=== PATIENT | female | born 2000 | race Caucasian/White ===

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

== ENCOUNTER 2018-02-18 21:39 | Emergency (ER) | payer OTHER ==
[2018-02-18 21:42] VITALS: BMI 21.4
--- NOTE | 2018-02-18 22:08 | PDOC ---
History of Present Illness - General Chief Complaint: Cold Symptoms Stated Complaint: COLD SYMPTOMS Time Seen by Provider: 02/18/18 22:02 - History of Present Illness Initial Comments: 17 y/o 6 month gravid F presents for evaluation of cold symptoms 2 days. No associated fever chills or night sweats she has a mild cough. No comorbidities 02/18/18 22:05 Past History - Past Medical History Allergies/Adverse Reactions: Allergies Allergy/AdvReac Type Severity Reaction Status Date / Time No Known Allergies Allergy Verified 02/18/18 21:42 Home Medications: Ambulatory Orders NK [No Known Home Medication] 02/18/18 COPD: No - Immunization History Immunization Up to Date: Yes - Suicide/Smoking/Psychosocial Hx Smoking History: Never smoked Review of Systems - Review of Systems HEENTM: Yes: Nose Congestion Respiratory: Yes: Cough *Physical Exam - Vital Signs Last Vital Signs Temp Pulse Resp BP Pulse Ox 98.4 F 91 H 18 114/74 99 02/18/18 21:40 02/18/18 21:40 02/18/18 21:40 02/18/18 21:40 02/18/18 21:40 - Physical Exam Comments: HEAD: NC/AT EYES: Conjuntiva clear Ears: Canals and TM's normal NOSE: Mildly injected turbinates with clear discharge THROAT: Moist mucous membrances, oral pharanx clear, uvula midline NECK: Supple without adenopathy CARDIAC: S1 S2 LUNGS: CTA Full and Equal breath sounds ABDOMEN: Soft NT ND MS: Full ROM in all joints without edema NEUROLOGIC: No gross sensory or motor deficits, NVID SKIN: Normal color and temperature no lesions or rashes 02/18/18 22:06 Medical Decision Making - Medical Decision Making 02/18/18 22:08 Patient will report to labor and delivery for clearance *DC/Admit/Observation/Transfer Diagnosis at time of Disposition: URI (upper respiratory infection) - Discharge Dispostion Disposition: HOME Condition at time of disposition: Stable Decision to Admit order: No - Referrals Referrals: Max Burgess [Non Staff, Medical] - - Patient Instructions Printed Discharge Instructions: DI for Viral Upper Respiratory Infection -- Adult Additional Instructions: Return to the emergency room should symptoms worsen or go unresolved. Its very important you to keep your temperature normal if you feel you I getting a fever please take Tylenol as directed follow-up with your BUILDING SUPERVISOR in one to 2 days for further evaluation and treatment options and a primary care physician I recommended few in one to 2 days for further evaluation and treatment options. A fever can harm your unborn baby - Post Discharge Activity
[2018-02-18 23:36] VITALS: BP 123/77; PULSE 86; TEMP 98
== END 2018-02-18 23:20 | disposition home or self-care (01) ==
LOC: JER 21:39 → JERFT 21:39 → JER 23:20
DX: O26.892 Other specified pregnancy related conditions, second trimester (principal); J06.9 Acute upper respiratory infection, unspecified; Z3A.26 26 weeks gestation of pregnancy
CPT/HCPCS: 99281-25

== ENCOUNTER 2018-05-30 19:20 | Inpatient (IN) | payer OTHER ==
[2018-05-30] MEDS ORDERED: DEXTROSE 5%-LACTATED RINGERS 500 ML IV ONE ×2 (19:45→20:45)
[2018-05-30] MEDS: DEXTROSE 5%-LACTATED RINGERS 1,000 ML IV SCH (22:00)
[2018-05-30 22:38] VITALS: BMI 27.1
[2018-05-30 22:56] LABS: BASO % 0.5 % (0-2.0); EOS % 1.5 % (0-4.5); HEMATOCRIT 25.6 % (32.4-45.2); HEMOGLOBIN 8.5 GM/dL (10.7-15.3); LYMPH % 23.7 % (8-40); MCH 21.9 pg (25.7-33.7); MCHC 33.4 g/dl (32.0-36.0); MEAN CELL VOLUME 65.6 fl (80-96); MEAN PLT VOLUME 8.4 fl (7.5-11.1); MONO % 9.6 % (3.8-10.2); NEUT % 64.7 % (42.8-82.8); PLATELET COUNT 278 K/MM3 (134-434); RDW 17.1 % (11.6-15.6); WHITE BLOOD COUNT 5.3 K/mm3 (4.0-10.0)
[2018-05-30 23:08] LABS: INR 0.89 (0.83-1.09); PROTHROMBIN TIME (PATIENT) 10.5 SEC (9.7-13.0)
--- NOTE | 2018-05-30 23:10 | HP ---
Past Medical History - Admission Chief Complaint: Labor pain History of Present Illness: 17 yo , @ 39 weeks gestation, EDC 05/30/18, admitted for labor pain. Upon admission she was 4cm dilated. History Source: Patient Limitations to Obtaining History: No Limitations - Past Medical History ...: 1 ...Para: 0 ...Term: 0 ...: 0 ...Spon : 0 ...Induced : 0 ...Multiple Gestation: 0 ...LMP: 08/23/17 ... Weeks Gestation by Dates: 40.0 ...EDC by Dates: 05/30/18 ...EDC by Sono: 06/03/18 - Past Surgical History Past Surgical History: Yes: None Hx Myomectomy: No Hx Transabdominal Cerclage: No - Smoking History Smoking history: Never smoked Have you smoked in the past 12 months: No - Alcohol/Substance Use Hx Alcohol Use: No History of Substance Use: reports: None - Social History History of Recent Travel: No Home Medications - Allergies Allergies/Adverse Reactions: Allergies Allergy/AdvReac Type Severity Reaction Status Date / Time No Known Allergies Allergy Verified 05/30/18 20:11 - Home Medications Home Medications: Ambulatory Orders Multivitamin Tablet 1 tab PO DAILY 02/18/18 Ferrous Sulfate [Feosol] 325 mg PO DAILY 05/30/18 Review of Systems - Review of Systems Constitutional: reports: No Symptoms Eyes: reports: No Symptoms HENT: reports: No Symptoms Neck: reports: No Symptoms Cardiovascular: reports: No Symptoms Respiratory: reports: No Symptoms Gastrointestinal: reports: No Symptoms Genitourinary: reports: Pain Breasts: reports: No Symptoms Reported Musculoskeletal: reports: No Symptoms Integumentary: reports: No Symptoms Neurological: reports: No Symptoms Endocrine: reports: No Symptoms Hematology/Lymphatic: reports: Other Psychiatric: reports: No Symptoms Pain Intensity: 3 Physical Exam - Maternity Vital Signs: Vital Signs Temperature 98.2 F 05/30/18 22:00 Pulse Rate 94 H 05/30/18 22:00 Respiratory Rate 20 05/30/18 22:00 Blood Pressure 138/87 05/30/18 22:00 O2 Sat by Pulse Oximetry (%) Constitutional: Yes: Well Nourished Eyes: Yes: Conjunctiva Clear HENT: Yes: Atraumatic Neck: Yes: Supple Cardiovascular: Yes: Regular Rate and Rhythm Lungs: Clear to auscultation - Abdominal Exam/OB Number of Fetuses: Single Presentation: Vertex - Vaginal Exam/OB Dilatation (cm): 4 Effacement (%): 90 Amniotic Membrane Status: Intact Presentation: Vertex/Position Station: -2 - Physical Exam ...Motor Strength: WNL Psychiatric: Yes: Alert, Oriented - Labs Lab Results: CBC, BMP 05/30/18 22:45 Problem List - Problems (1) Pain during labor Code(s): O99.89 - OTH DISEASES AND CONDITIONS COMPL PREG/CHLDBRTH; R52 - PAIN, UNSPECIFIED Assessment/Plan 39 weeks gestation Active labor Admit to L&D Analgesia as needed Anticipate
[2018-05-30 23:14] LABS: ANION GAP 8 MMOL/L (8-16); BLOOD UREA NITROGEN 14 mg/dL (7-18); CALCIUM 8.6 mg/dL (8.5-10.1); CHLORIDE 110 mmol/L (98-107); CO2 22 mmol/L (21-32); CREATININE 0.4 mg/dL (0.55-1.3); GLUCOSE,RANDOM 79 mg/dL (74-106); POTASSIUM 3.9 mmol/L (3.5-5.1); SODIUM 140 mmol/L (136-145)
[2018-05-30 23:50] LABS: ANISOCYTOSIS 3+; MACROCYTOSIS 2+; PLATELET ESTIMATE ADEQUATE
[2018-05-31] MEDS ORDERED: PROMETHAZINE HCL 25 MG/1 ML VIAL ONE ×2 (01:53→09:47)
[2018-05-31] MEDS ORDERED: BUTORPHANOL TARTRATE 1 MG/ML VIAL ONE ×4 (01:53→09:46)
[2018-05-31] MEDS ORDERED: PROMETHAZINE HCL 25 MG/1 ML VIAL IVPB ONE (02:00)
[2018-05-31] MEDS ORDERED: BUTORPHANOL TARTRATE 1 MG/ML VIAL IVPB ONE (02:00)
[2018-05-31] MEDS ORDERED: ELECTROLYTE-148 SOLN 1,000 ML IV SCH (06:30)
--- NOTE | 2018-05-31 08:53 | PN ---
Progress Note (short form) - Note Progress Note: cx 6 cm 80 vx -1 mi, arom clear , fhr cat 1, regular contraction
[2018-05-31] MEDS ORDERED: PROMETHAZINE HCL 25 MG/1 ML VIAL IVPUSH ONE (10:05)
[2018-05-31] MEDS ORDERED: BUTORPHANOL TARTRATE 1 MG/ML VIAL IVPUSH ONE (10:05)
--- NOTE | 2018-05-31 10:08 | PN ---
Progress Note (short form) - Note Progress Note: cx 7 cm 80 vx -1, mt, fhr cat 1, regular contraction q 2 min wants more pain meds, declined epidural
[2018-05-31] MEDS ORDERED: OXYTOCIN 20 UNITS in 0.9% NS 20 UNIT/1,000 ML INFUS.BAG IV ONE (10:12)
[2018-05-31] MEDS ORDERED: LIDOCAINE HCL 1% PRESERVATIVE FREE - 30ML VIAL ONE (10:12)
[2018-05-31] MEDS ORDERED: BENZOCAINE 20% 57 GM BOTTLE TP PRN (13:23)
[2018-05-31] MEDS ORDERED: WITCH HAZEL 50% (TUCKS) 40 PAD/JAR PAD TP PRN (13:23)
[2018-05-31] MEDS ORDERED: BISACODYL 10 MG SUPP.RECT RC PRN (13:23)
[2018-05-31] MEDS ORDERED: METHYLERGONOVINE MALEATE 0.2 MG/1 ML AMP IM PRN (13:23)
[2018-05-31] MEDS ORDERED: BENZOCAINE 28 GM HEMORRHOIDAL OINTMENT TP PRN (13:23)
[2018-05-31] MEDS: ACETAMINOPHEN 325 MG TABLET (FP) PO PRN ×2 (13:30→20:42)
[2018-05-31] MEDS ORDERED: OXYTOCIN 20 UNITS in 0.9% NS 20 UNIT/1,000 ML INFUS.BAG IV SCH (13:30)
[2018-05-31] MEDS ORDERED: D5W-LR W/ 20 UNITS OXYTOCIN 20 UNIT/1,000 ML INFUS.BAG IV SCH (13:30)
[2018-05-31] MEDS: IBUPROFEN 600 MG TABLET (FP) PO PRN ×2 (13:30→20:43)
[2018-05-31] MEDS: SENNOSIDES/DOCUSATE COMBO (SENNA PLUS) TABLET (UD) PO PRN (20:43)
[2018-05-31] MEDS: FERROUS SO4 325 MG TABLET (FP) PO SCH (21:05)
[2018-05-31] MEDS: DEXTROSE 5%-LACTATED RINGERS 1,000 ML IV SCH (23:49)
[2018-06-01 06:03] LABS: BASO % 0.3 % (0-2.0); EOS % 0.4 % (0-4.5); HEMATOCRIT 19.4 % (32.4-45.2); LYMPH % 16.6 % (8-40); MCH 21.3 pg (25.7-33.7); MCHC 32.6 g/dl (32.0-36.0); MEAN CELL VOLUME 65.3 fl (80-96); MEAN PLT VOLUME 8.3 fl (7.5-11.1); MONO % 7.9 % (3.8-10.2); NEUT % 74.8 % (42.8-82.8); PLATELET COUNT 214 K/MM3 (134-434); RBC 2.97 M/mm3 (3.60-5.2); RDW 17.4 % (11.6-15.6)
[2018-06-01 06:06] LABS: HEMOGLOBIN 6.3 GM/dL (10.7-15.3)
[2018-06-01] MEDS ORDERED: DIPHTH,PERTUSS(ACELL),TET 0.5 ML DISP.SYRIN IM ONE (10:00)
[2018-06-01] MEDS: PRENATAL VITAMINS W/ FOLIC ACID TABLET (FP) PO SCH (10:00)
[2018-06-01] MEDS: FERROUS SO4 325 MG TABLET (FP) PO SCH ×2 (10:00→21:15)
[2018-06-01] MEDS ORDERED: FLU VACCINE QUAD 60 MCG/0.5 ML (MDV 18-19) IM ONE (10:00)
[2018-06-01] MEDS: IBUPROFEN 600 MG TABLET (FP) PO PRN ×2 (14:32→22:49)
[2018-06-01] MEDS: ACETAMINOPHEN 325 MG TABLET (FP) PO PRN ×2 (14:32→22:48)
--- NOTE | 2018-06-01 20:24 | PN ---
Progress Note (short form) - Note Progress Note: ppd 1, anemia, no c/o ,no dizziness ambulating well abdomen soft, uterus firm, non tender lochia mild no calf tenderness anemia asymptomatic, advised iron, vit if symptomatic advise transfusion
[2018-06-01] MEDS: SENNOSIDES/DOCUSATE COMBO (SENNA PLUS) TABLET (UD) PO PRN (21:15)
[2018-06-02] MEDS: ACETAMINOPHEN 325 MG TABLET (FP) PO PRN (07:36)
[2018-06-02] MEDS: IBUPROFEN 600 MG TABLET (FP) PO PRN (07:39)
[2018-06-02 07:56] LABS: BASO % 0.5 % (0-2.0); EOS % 2.5 % (0-4.5); HEMATOCRIT 22.1 % (32.4-45.2); LYMPH % 21.4 % (8-40); MCH 20.8 pg (25.7-33.7); MCHC 31.6 g/dl (32.0-36.0); MEAN CELL VOLUME 65.8 fl (80-96); MEAN PLT VOLUME 8.2 fl (7.5-11.1); MONO % 7.5 % (3.8-10.2); NEUT % 68.1 % (42.8-82.8); PLATELET COUNT 239 K/MM3 (134-434); RBC 3.36 M/mm3 (3.60-5.2); RDW 17.4 % (11.6-15.6); WHITE BLOOD COUNT 8.2 K/mm3 (4.0-10.0)
[2018-06-02] MEDS: PRENATAL VITAMINS W/ FOLIC ACID TABLET (FP) PO SCH (10:35)
[2018-06-02] MEDS: FERROUS SO4 325 MG TABLET (FP) PO SCH (10:35)
--- NOTE | 2018-06-02 11:11 | DS ---
Physical Exam-OIL FIELD OPERATOR Vital Signs: Vital Signs Temperature 98.1 F 06/01/18 21:00 Pulse Rate 80 06/01/18 21:00 Respiratory Rate 18 06/01/18 21:00 Blood Pressure 115/78 06/01/18 21:00 O2 Sat by Pulse Oximetry (%) 100 05/31/18 14:15 Constitutional: Yes: Well Nourished, No Distress, Calm Eyes: Yes: WNL, Conjunctiva Clear, EOM Intact HENT: Yes: WNL, Atraumatic, Normocephalic Neck: Yes: WNL, Supple, Trachea Midline Cardiovascular: Yes: WNL, Regular Rate and Rhythm Respiratory: Yes: WNL, Regular, CTA Bilaterally Gastrointestinal: Yes: WNL ...Rectal Exam: Yes: WNL Renal/: Yes: WNL External Genitalia: Yes: Normal ....Post : Yes: Uterus firm, Uterus non-tender, Slight lochia rubra Breast(s): Yes: WNL Musculoskeletal: Yes: WNL Extremities: Yes: WNL Edema: No Integumentary: Yes: WNL Neurological: Yes: WNL, Alert, Oriented ...Motor Strength: WNL Psychiatric: Yes: WNL, Alert, Oriented Labs: CBC, BMP 06/02/18 06:37 05/30/18 22:45 Delivery - Delivery Vaginal Delivery: Spontaneous (no complication) Type of Anesthesia: Local Episiotomy/Laceration: Left Mediolateral EBL (cc): 400 Delivery, Single - Stages of Labor Date 1st Stage Initiatied: 05/31/18 Time 1st Stage Initiated: 01:00 Date 2nd Stage Initiated: 05/31/18 Time 2nd Stage Initiated: 12:35 Date of Delivery: 05/31/18 Time of Delivery: 13:00 Time Placenta Delivered: 13:05 Placenta: Yes: Spontaneous - Condition of Infant Electrical Automation Engineer/Resident Hall Director Present: No Infant Gender: Male Weight: 6 lb 14 oz Position: Right, OA Total Hours ROM (Hrs/Mins): 4h15m - 1 Minute Total Score: 9 5 Minutes Total Score: 9 - Frakes Feeding Plan Initial Plan: Elected not to breastfeed exclusively throughout hospitalization Discharge Summary Reason For Visit: LABOR ADMIT Current Active Problems Pain during labor (Acute) Procedures: Principal: Condition: Stable - Instructions Disposition: HOME - Home Medications Comprehensive Discharge Medication List: Ambulatory Orders Multivitamin Tablet 1 tab PO DAILY 02/18/18 Ferrous Sulfate [Feosol] 325 mg PO DAILY 05/30/18 Ibuprofen [Motrin -] 600 mg PO QID #28 tablet 06/02/18
[2018-06-02 11:40] VITALS: BP 109/64; PULSE 76; TEMP 97.6
== END 2018-06-02 12:30 | disposition home or self-care (01) | DRG 560 ==
LOC: JDEL 19:20 → JLDR 21:40 → J3W 05-31 15:26
PROVIDERS: ADMIT Obstetrics & Gynecology; ATTEND Obstetrics & Gynecology
PROC: 10E0XZZ Delivery of Products of Conception, External Approach (ICD-10-PCS; principal; 2018-05-31)
PROC: 0W8NXZZ Division of Female Perineum, External Approach (ICD-10-PCS; 2018-05-31)
DX: O99.02 Anemia complicating childbirth (principal); D64.9 Anemia, unspecified; Z3A.39 39 weeks gestation of pregnancy; Z37.0 Single live birth
CPT/HCPCS: 36415; 59409; 80048; 85025; 85610; 85730; 86593; 86850; 86900; 86901; 90686; 90715; G0008

== ENCOUNTER 2019-05-02 07:47 | Emergency (ER) | payer OTHER ==
[2019-05-02 08:00] VITALS: BP 157/89; PULSE 91; TEMP 97; BMI 23.4
--- NOTE | 2019-05-02 08:12 | PDOC ---
History of Present Illness - General Chief Complaint: Vaginal Bleeding Stated Complaint: VAGINAL BLEEDING - History of Present Illness Initial Comments: The pt is a 18F w/ no reported PMH who presents for evaluation of 1 day of vaginal spotting/bleeding. The pt reports giving in 05/2018 and was subsequently on OCPs which she stopped taking in 01/2019. She reports her LMP was 03/01/19. She has been having intercourse with her same partner w/o condom use. She reports a neg test at home. She endorses mild centered suprapubic cramping similar to her previous menstrual cycles. She denies fevers/chills, dysuria, diarrhea, hematuria, blood in her stool, chest pain, trouble breathing, or changes in sensation. 05/02/19 08:32 Past History - Past Medical History Allergies/Adverse Reactions: Allergies Allergy/AdvReac Type Severity Reaction Status Date / Time No Known Allergies Allergy Verified 05/02/19 07:58 Home Medications: Ambulatory Orders Multivitamin Tablet 1 tab PO DAILY 02/18/18 Ferrous Sulfate [Feosol] 325 mg PO DAILY 05/30/18 Ibuprofen [Motrin -] 600 mg PO QID #28 tablet 06/02/18 Asthma: No Cancer: No Cardiac Disorders: No COPD: No Diabetes: No HTN: No Seizures: No Thyroid Disease: No - Immunization History Immunization Up to Date: Yes - Psycho Social/Smoking Cessation Hx Smoking History: Never smoked Have you smoked in the past 12 months: No Hx Alcohol Use: No Drug/Substance Use Hx: No Hx Substance Use Treatment: No Review of Systems - Review of Systems Able to Perform ROS?: Yes Comments:: GENERAL/CONSTITUTIONAL: No fever or chills. No weakness HEAD, EYES, EARS, NOSE AND THROAT: No change in vision. No change in hearing. No sore throat CARDIOVASCULAR: No chest pain or shortness of breath RESPIRATORY: Denies cough, hemoptysis GASTROINTESTINAL: No nausea, vomiting, diarrhea or constipation GENITOURINARY: No dysuria, frequency, or change in urination MUSCULOSKELETAL: No joint or muscle swelling or pain. No neck or back pain SKIN: No rash NEUROLOGIC: No headache, vertigo, loss of consciousness, or change in strength/ sensation ENDOCRINE: No increased thirst. No abnormal weight change HEMATOLOGIC/LYMPHATIC: No anemia, easy bleeding, or history of blood clots ALLERGIC/IMMUNOLOGIC: No hives or skin allergy 05/02/19 08:12 Is the patient limited Uzbek proficient: No *Physical Exam - Vital Signs Last Vital Signs Temp Pulse Resp BP Pulse Ox 97 F L 91 H 18 157/89 99 05/02/19 07:56 05/02/19 07:56 05/02/19 07:56 05/02/19 07:56 05/02/19 07:56 - Physical Exam GENERAL: Awake, alert, and oriented to person/place/time, in no acute distress HEAD: No signs of trauma, normocephalic, atraumatic EYES: PERRLA, EOMI, sclera anicteric, conjunctiva clear ENT: Hearing grossly normal, nares patent, oropharynx clear without exudates. Moist mucosa LUNGS: No distress, speaks in full sentences, clear to auscultation bilaterally HEART: Regular rate and rhythm, normal S1 and S2, no murmurs appreciated, peripheral pulses normal and equal bilaterally ABDOMEN: Soft, nontender, normoactive bowel sounds. No guarding, no rebound EXTREMITIES: Normal inspection, Normal range of motion, no edema. No clubbing or cyanosis NEUROLOGICAL: Cranial nerves II through XII grossly intact. Normal speech, normal gait, no focal sensorimotor deficits SKIN: Warm, Dry PELVIC: External genitalia unremarkable Speculum exam with small amount of blood in the vaginal canal, no clot observed Vaginal wall mucosa is unremarkable Cervix visualized and is closed in appearance without any protruding material Bimanual exam without cervical motion tenderness, adnexal tenderness or any masses appreciated. 05/02/19 08:12 Medical Decision Making - Medical Decision Making The pt is a 18F w/ no reported PMH who presents for evaluation of 1 day of vaginal spotting/bleeding. Likely 2/2 return of menses Will obtain Upreg 05/02/19 08:36 Pt with likely onset of menses Upreg neg Plan for D/C w/ PCP f/u Discharge instructions and return precautions given Patient in agreement and verbalized understanding Dispo: Home Discharge - Discharge Information Problems reviewed: Yes Clinical Impression/Diagnosis: Vaginal bleeding Condition: Stable Disposition: HOME - Admission No - Follow up/Referral Referrals: Lilly Nogueira MD [Primary Care Provider] - - Patient Discharge Instructions Patient Printed Discharge Instructions: Myths and Truths About the Menstrual Cycle Additional Instructions: You were seen in the Emergency Department for evaluation of vaginal bleeding. Your exam was benign and your urine test was negative. You are likely have recurrence of your menstrual cycle. Review the handout provided at discharge. Follow up with your primary care provider or your OBGYN within the week. Return to the Emergency Department if you develop fevers, dizziness chest pain, trouble breathing, worsening symptoms, or any new/concerning symptoms. - Post Discharge Activity
--- NOTE | 2019-05-02 09:16 | PDOC ---
Attending Attestation - Resident Resident Name: Rhys Jimenez - HPI HPI: 05/02/19 09:10 18 y/o female here in ED c/o some vaginal spotting used only one pad today. Pt says she was on BCP but stopped in October. Pt is sexually active not using BCP, Pt had a baby May 2018. Pt concerned that she has not had a period since February and then she started spotting today wild mild cramping 1/10 pain level, no meds taken. Pt concerned she was and so she came in for evaluation. - Physicial Exam PE: 05/02/19 09:16 General well nourished non toxic appearing 18 y/o in no distress HEENT: NCAT DARON Neck: supple Lungs: + bs cat cta Heart: S1S2 regular Abd: + bs abd soft no guarding or tenderness RN ADMIT: pevic exam completed by resident , reportd as normal Neuro: Pt is alert and oriented x3,, ynes no focal deficits - Medical Decision Making 05/02/19 09:19 18 y/o female here in ED concerned about mild vaginal spotting started today used only 1 pad, with pain level about 1/10 cramps no meds taken Plan: ucg negative, pt stable for dc home with out pt f/u with her equipment analyst. PT given opportunity to ask and have all questions answered prior to dc home.Pt agreed with this dc plan.
== END 2019-05-02 09:24 | disposition home or self-care (01) ==
LOC: JER 07:47
DX: N93.8 Other specified abnormal uterine and vaginal bleeding (principal); R10.30 Lower abdominal pain, unspecified
CPT/HCPCS: 84703; 99283-25

== ENCOUNTER 2021-06-01 11:50 | Inpatient (IN) | payer OTHER ==
[2021-06-01] MEDS ORDERED: BUTORPHANOL TARTRATE 1 MG/ML VIAL IVPB ONE (12:57)
[2021-06-01] MEDS ORDERED: PROMETHAZINE HCL 25 MG/1 ML VIAL IVPUSH ONE (12:57)
[2021-06-01] MEDS ORDERED: DEXTROSE 5%-LACTATED RINGERS 1,000 ML IV SCH (13:00)
[2021-06-01 14:12] VITALS: BMI 31.2
[2021-06-01 14:19] LABS: BASO % 0.2 % (0-2.0); EOS % 0.3 % (0-4.5); HEMATOCRIT 34.5 % (32.4-45.2); HEMOGLOBIN 10.8 GM/dL (10.7-15.3); LYMPH % 11.1 % (8-40); MCH 22.7 pg (25.7-33.7); MCHC 31.3 g/dl (32.0-36.0); MEAN CELL VOLUME 72.5 fl (80-96); MEAN PLT VOLUME 8.8 fl (7.5-11.1); NEUT % 83.4 % (42.8-82.8); PLATELET COUNT 261 10^3/uL (134-434); RBC 4.75 M/mm3 (3.60-5.2); WHITE BLOOD COUNT 9.3 K/mm3 (4.0-10.0)
[2021-06-01 14:27] LABS: INR 0.93 (0.83-1.09); PROTHROMBIN TIME (PATIENT) 10.7 SEC (9.7-13.0)
[2021-06-01 14:30] LABS: ACTIVATED PTT 25.4 SECONDS (25.2-36.5)
[2021-06-01 14:42] LABS: BLOOD UREA NITROGEN 9.3 mg/dL (7-18)
[2021-06-01 14:45] LABS: CREATININE 0.4 mg/dL (0.55-1.3)
[2021-06-01] MEDS ORDERED: BUTORPHANOL TARTRATE 2 MG/ML VIAL ONE (15:25)
[2021-06-01] MEDS ORDERED: PROMETHAZINE HCL 25 MG/1 ML VIAL ONE (15:25)
[2021-06-01] MEDS ORDERED: OXYTOCIN 20 UNITS in 0.9% NS 20 UNIT/1,000 ML INFUS.BAG IV ONE (19:57)
[2021-06-01] MEDS ORDERED: LIDOCAINE HCL 1% PRESERVATIVE FREE - 30ML VIAL ONE (19:58)
[2021-06-01] MEDS ORDERED: ACETAMINOPHEN 325 MG TABLET (FP) PO PRN (21:20)
[2021-06-01] MEDS ORDERED: WITCH HAZEL 50% (TUCKS) 40 PAD/JAR PAD TP PRN (21:20)
[2021-06-01] MEDS ORDERED: BENZOCAINE 28 GM HEMORRHOIDAL OINTMENT TP PRN (21:20)
[2021-06-01] MEDS ORDERED: oxyCODONE HCL 5 MG TABLET PO PRN (21:20)
[2021-06-01] MEDS ORDERED: METHYLERGONOVINE MALEATE 0.2 MG/1 ML AMP IM PRN (21:20)
[2021-06-01] MEDS ORDERED: BISACODYL 10 MG SUPP.RECT RC PRN (21:20)
[2021-06-01] MEDS ORDERED: BENZOCAINE 20% 57 GM BOTTLE TP PRN (21:20)
[2021-06-01] MEDS ORDERED: IBUPROFEN 600 MG TABLET (FP) PO PRN (21:20)
[2021-06-01] MEDS ORDERED: OXYTOCIN 20 UNITS in 0.9% NS 20 UNIT/1,000 ML INFUS.BAG IV SCH (21:30)
[2021-06-02] MEDS: FERROUS SO4 325 MG TABLET (FP) PO SCH ×2 (09:00→16:58)
[2021-06-02] MEDS: PRENATAL VITAMINS W/ FOLIC ACID TABLET (FP) PO SCH (09:35)
[2021-06-02 09:57] LABS: BASO % 0.5 % (0-2.0); EOS % 0.2 % (0-4.5); HEMATOCRIT 30.2 % (32.4-45.2); HEMOGLOBIN 9.5 GM/dL (10.7-15.3); MCH 22.8 pg (25.7-33.7); MCHC 31.5 g/dl (32.0-36.0); MEAN CELL VOLUME 72.4 fl (80-96); MEAN PLT VOLUME 8.8 fl (7.5-11.1); MONO % 8.5 % (3.8-10.2); NEUT % 76.8 % (42.8-82.8); PLATELET COUNT 220 10^3/uL (134-434); RBC 4.17 M/mm3 (3.60-5.2); RDW 16.2 % (11.6-15.6); WHITE BLOOD COUNT 12.2 K/mm3 (4.0-10.0)
[2021-06-02] MEDS ORDERED: FLU VACC QS2021-22(6MOS UP)/PF 60 MCG/0.5 ML SYRINGE IM ONE (10:00)
[2021-06-02] MEDS ORDERED: SENNOSIDES/DOCUSATE COMBO (SENNA PLUS) TABLET (UD) PO PRN (22:00)
[2021-06-03] MEDS: FERROUS SO4 325 MG TABLET (FP) PO SCH (09:00)
[2021-06-03] MEDS: PRENATAL VITAMINS W/ FOLIC ACID TABLET (FP) PO SCH (09:21)
[2021-06-03 10:45] VITALS: BP 109/72; PULSE 89; TEMP 97.7
== END 2021-06-03 13:05 | disposition home or self-care (01) | DRG 560 ==
LOC: JDEL 11:50 → JLDR 12:48 → J3W 22:47
PROVIDERS: ADMIT Obstetrics & Gynecology; ATTEND Obstetrics & Gynecology
PROC: 10E0XZZ Delivery of Products of Conception, External Approach (ICD-10-PCS; principal; 2021-06-01)
PROC: 0HQ9XZZ Repair Perineum Skin, External Approach (ICD-10-PCS; 2021-06-01)
DX: O42.02 Full-term premature rupture of membranes, onset of labor within 24 hours of rupture (principal); O70.0 First degree perineal laceration during delivery; Z3A.39 39 weeks gestation of pregnancy; Z37.0 Single live birth
CPT/HCPCS: 36415; 59409; 80048; 85025; 85610; 85730; 86593; 86780; 86850; 86900; 86901; 90686; C9803; G0008; U0003; U0005